=== PATIENT | female | born 1975 | race Caucasian/White ===

== ENCOUNTER 2017-10-22 14:07 | Day surgery (SDC) | payer OTHER ==
[2017-10-22 14:58] VITALS: BMI 38.4
[2017-10-22 15:35] LABS: Bilirubin Negative (Negative); Blood, Urine Negative (Negative); Clarity CLEAR (Clear); Glucose, Urine (Dipstick) Negative (Negative); Leukocyte Negative (Negative); Nitrite Negative (Negative); Protein, Urine (Dipstick) 100 mg/dL (Neg-Trace); Specific Gravity, Urine 1.019 (1.002-1.036); Urobilinogen 0.2 mg/dL (0.2-1.0); pH, Urine 5.5 (5.0-9.0)
[2017-10-22 15:38] LABS: #Basophils 0.1 thou/uL (0.0-0.2); #Eosinphils 0.1 thou/uL (0.0-0.7); #Lymphocytes 1.7 thou/uL (1.20-3.40); #Monocytes 0.6 thou/uL (0.11-0.59); %Basophils 0.8 % (0.0-1.0); %Eosinophils 0.7 % (0.0-10.0); %Lymphocytes 20.4 % (21.0-51.0); %Monocytes 6.7 % (0.0-10.0); %Neutrophils 71.4 % (42.0-75.0); Mean Corpuscular HGB CONC 33.4 g/dL (32.0-36.0); Mean Corpuscular Hemoglobin 30.4 pg (27.0-31.0); Mean Corpuscular Volume 90.9 fl (81.0-99.0); Mean Platelet Volume 9.4 fL (7.4-10.4); Platelet Count 175 thou/uL (130-400); RBC Distribution Width 11.6 % (11.5-14.5); Red Blood Cell (RBC) Count 3.61 mill/uL (4.20-5.40); White Blood Cell (WBC) Count 8.4 thou/uL (4.8-10.8)
[2017-10-22 15:38] LABS: Bacteria/HPF None Seen HPF (None Seen); Hyaline Casts/LPF 4-6 HYALINE CAST LPF (0-3 Hyaline); Pathc Cast-AUWi Flag 0.81 (0-2.49); Squamous Epithelial 0-3 HPF (0-3); WBC/HPF 0-3 HPF (0-3)
[2017-10-22 15:57] LABS: AST (SGOT) 13 U/L (5-34); Anion Gap 10 mmol/L (10-20); BUN (Urea Nitrogen) 13 mg/dL (7.0-18.7); Calc. Creatinine Clearance 172 mL/min (70-130); Calcium 9.1 mg/dL (7.8-10.44); Carbon Dioxide 23 mmol/L (22-29); Chloride 107 mmol/L (98-107); Estimated GFR-MDRD 87; Glucose 114 mg/dL (70-105); Potassium 3.9 mmol/L (3.5-5.1); Sodium 136 mmol/L (136-145)
--- NOTE | 2017-10-22 18:06 | PRG ---
DATE OF SERVICE: 10/22/2017 PRESENTING COMPLAINT: Elevated blood pressures at 37 weeks gestation. HISTORY OF PRESENT ILLNESS: Mr. Monae is a 42-year-old 2, para 0, AB 1 with an EDC of 11/06, who sees Dr. Merlene Ellison. She was sent over from the office with elevated blood pressures for matt luation. Of note, she has an induction of labor for gestational hypertension scheduled in 4 days. S he denies headache, blurred vision or scotoma. AUDIT OFFICER HISTORY: Elective termination x1. This is in vitro . The patient has had mildly el evated blood pressures over the last few weeks. Denies headache or scotoma. Blood type is A positiv e, antibody negative, Pap negative, rubella immune, VDRL nonreactive and group B strep not in the rec ord. PAST MEDICAL HISTORY: None. PAST SURGICAL HISTORY: None. ALLERGIES: Denies. MEDICATIONS: vitamins. SOCIAL HISTORY: Denies tobacco, alcohol or drug use. FAMILY HISTORY: Noncontributory. REVIEW OF SYSTEMS: Noncontributory. PHYSICAL EXAMINATION: GENERAL: White female, in no acute distress. VITAL SIGNS: Initial blood pressure 140/80, subsequent blood pressures have been 120s to 130s systol ic over 80s diastolic. She is afebrile with a pulse of 85 and respirations 18. HEENT: Within normal limits. LUNGS: Clear to auscultation bilaterally. HEART: Regular rhythm. ABDOMEN: Soft and nontender without rebound or guarding. FHTs are 140s, category 1 heart rate tracing. PELVIC: Cervical exam deferred. EXTREMITIES: Trace edema. LABORATORY STUDIES: Laboratory revealed normal hematocrit of 33% with a normal platelet count of 175 , AST is within normal limits at 13, creatinine is 0.74. Urine did reveal 100 on the urine consisten t with 1-2+. IMPRESSION: Mild proteinuria, normotensive at rest, at 37 weeks gestation with gestational hypertens ion. PLAN: Advised modified bed rest at home and proceed with planned induction in 4 days. The patient t o return if she develops headaches, scotoma or blurred vision, right upper quadrant pain.
== END 2017-10-22 16:45 | disposition home or self-care (01) ==
LOC: L&D/OP 14:07
PROVIDERS: ATTEND Obstetrics & Gynecology
DX: O13.3 Gestational [pregnancy-induced] hypertension without significant proteinuria, third trimester (principal); Z3A.37 37 weeks gestation of pregnancy; Z79.899 Other long term (current) drug therapy; Z88.5 Allergy status to narcotic agent; Z88.8 Allergy status to other drugs, medicaments and biological substances
CPT/HCPCS: 36415; 80048; 81001; 84450; 85025

== ENCOUNTER 2017-10-25 14:33 | Inpatient (IN) | payer OTHER ==
[2017-10-25] MEDS ORDERED: Acetaminophen 500 MG TAB PO PRN (16:00)
[2017-10-25] MEDS ORDERED: Zolpidem Tartrate 5 MG TAB PO PRN (16:00)
[2017-10-25] MEDS ORDERED: Ibuprofen 800 MG TAB PO PRN (16:00)
[2017-10-25] MEDS ORDERED: Promethazine HCl 25 MG/ML VIAL IM PRN (16:00)
[2017-10-25] MEDS ORDERED: Carboprost 250 MCG/ML AMP IM PRN (16:00)
[2017-10-25] MEDS ORDERED: LR / Pitocin 40 units/1000 ml 1,000 ML IV PRN (16:00)
[2017-10-25] MEDS ORDERED: Lidocaine 1% (PF) 30 ML VIAL SC PRN (16:00)
[2017-10-25] MEDS ORDERED: HYDROcodone/Acetaminophen 5/325 mg Tablet PO PRN (16:00)
[2017-10-25] MEDS ORDERED: Misoprostol 200 MCG TAB PR PRN (16:00)
[2017-10-25] MEDS ORDERED: LR 500 ML/Oxytocin 10 units 500 ML IV SCH (16:00)
[2017-10-25 20:58] VITALS: BMI 38.4
[2017-10-25] MEDS ORDERED: Penicillin G Potassium 5 MILL.UNITS in Sodium Chloride 0.9% 100 ML IVPB SCH (21:00)
[2017-10-25] MEDS: Lactated Ringer's 1,000 ML IV SCH (21:24)
[2017-10-25 21:53] LABS: Hemoglobin 10.7 g/dL (12.0-16.0); Mean Corpuscular HGB CONC 33.2 g/dL (32.0-36.0); Mean Corpuscular Hemoglobin 29.5 pg (27.0-31.0); Mean Corpuscular Volume 89.1 fl (81.0-99.0); Mean Platelet Volume 9.6 fL (7.4-10.4); Platelet Count 168 thou/uL (130-400); RBC Distribution Width 11.8 % (11.5-14.5); Red Blood Cell (RBC) Count 3.61 mill/uL (4.20-5.40); White Blood Cell (WBC) Count 9.2 thou/uL (4.8-10.8)
[2017-10-25] MEDS: Misoprostol 100 MCG TAB VAG SCH (21:55)
[2017-10-25 22:07] LABS: ALT (SGPT) Less than 7 U/L (8-55); AST (SGOT) 12 U/L (5-34); Albumin 3.1 g/dL (3.5-5.0); Alkaline Phosphatase 136 U/L (40-150); Anion Gap 15 mmol/L (10-20); BUN (Urea Nitrogen) 10 mg/dL (7.0-18.7); Bilirubin, Total 0.2 mg/dL (0.2-1.2); Calc. Creatinine Clearance 193 mL/min (70-130); Calcium 8.7 mg/dL (7.8-10.44); Carbon Dioxide 20 mmol/L (22-29); Chloride 107 mmol/L (98-107); Estimated GFR-MDRD Greater than 90; Globulin 2.3 g/dL (2.4-3.5); Glucose 94 mg/dL (70-105); Potassium 3.8 mmol/L (3.5-5.1); Protein, Total 5.4 g/dL (6.0-8.3); Sodium 138 mmol/L (136-145)
[2017-10-25 22:24] LABS: Syphilis Antibody Nonreactive (Nonreactive); Syphilis Antibody Index 0.04 S/CO (<1.00 Non-Reactive)
[2017-10-25 23:35] LABS: HBSAg Index 0.32 S/CO (0-0.99); Hep B Surf Ag Non-Reactive S/CO (NonReactive)
[2017-10-26] MEDS: Misoprostol 100 MCG TAB VAG SCH ×6 (01:05→16:53)
[2017-10-26] MEDS: Labetalol HCl 100 MG/20 ML VIAL SLOW IVP PRN ×2 (02:37→03:20)
[2017-10-26] MEDS ORDERED: Labetalol HCl 100 MG/20 ML VIAL ONE (02:39)
[2017-10-26] MEDS: Penicillin G 2.5 MILL.units 2.5 MILL.UNITS in Premix Bag 1 BAG IVPB SCH ×6 (03:27→18:26)
[2017-10-26] MEDS: Lactated Ringer's 1,000 ML IV SCH ×3 (03:28→10:07)
[2017-10-26] MEDS ORDERED: hydrALAZINE 20 MG/ML VIAL ONE (04:43)
[2017-10-26] MEDS ORDERED: hydrALAZINE 20 MG/ML VIAL SLOW IVP PRN (04:50)
[2017-10-26] MEDS ORDERED: Labetalol HCl 100 MG/20 ML VIAL SLOW IVP PRN (04:52)
[2017-10-26] MEDS ORDERED: Labetalol HCl 100 MG/20 ML VIAL SLOW IVP SCH (05:00)
[2017-10-26] MEDS ORDERED: Penicillin G Potassium 5 MILL.UNITS VIAL ONE (05:52)
[2017-10-26] MEDS ORDERED: Magnesium Sulfate 20 gm/500 ml 20 GM/500 ML BAG ONE (06:41)
[2017-10-26] MEDS ORDERED: Bupivacaine 0.5% 20 ML, Fentanyl 400 MCG in Sodium Chloride 0.9% 72 ML EPIDURAL SCH ×2 (07:15→09:00)
[2017-10-26] MEDS: Ondansetron PF 4 MG/2 ML Vial IVP PRN ×2 (07:40→16:21)
[2017-10-26] MEDS ORDERED: Calcium Gluc 4.6 MEQ/10 ML (100 MG/ML) SLOW IVP PRN (07:50)
[2017-10-26] MEDS ORDERED: Magnesium Sulfate 20 GM/WATER 500 ML BAG IVPB SCH (08:00)
[2017-10-26] MEDS ORDERED: Ondansetron PF 4 MG/2 ML Vial IVP PRN ×2 (08:46→20:03)
[2017-10-26] MEDS ORDERED: ePHEDrine/0.9% NaCl/PF SYRINGE 50 mg/10 ml SLOW IVP PRN (08:46)
[2017-10-26] MEDS ORDERED: Promethazine HCl 25 MG/ML VIAL IM PRN (08:46)
[2017-10-26] MEDS ORDERED: Naloxone HCl 0.4 mg/ml Vial IVP PRN ×2 (08:46)
[2017-10-26] MEDS ORDERED: Eucerin (Mineral Oil/Petrolatum,White) 30 gm Jar TOP PRN (08:46)
[2017-10-26] MEDS ORDERED: Acetaminophen 325 MG TAB PO PRN (08:46)
[2017-10-26] MEDS ORDERED: diphenhydrAMINE 50 MG/ML VIAL IVP PRN (08:46)
[2017-10-26] MEDS ORDERED: Lactated Ringer's 500 ML IV PRN (08:46)
[2017-10-26] MEDS ORDERED: Fentanyl 4mcg/Marcaine 0.1% Cassette 100 ML EPIDURAL SCH (09:00)
[2017-10-26] MEDS ORDERED: Communication Order-Pharmacy FS SCH (09:00)
--- NOTE | 2017-10-26 10:38 | PDOC.LDPN ---
Labor & Delivery Progress Note - Subjective Subjective: comfortable - Objective Vital signs reviewed and normal: yes General: NAD, resting Uterine fundus: non tender Dilation: 3 Effacement: 90% Station: -2 FHT: category 1 AROM: clear fluid Plan: continue plan of care
[2017-10-26] MEDS: Magnesium Sulfate 20 gm/500 ml 20 GM/500 ML BAG IVPB SCH (18:32)
[2017-10-26] MEDS ORDERED: Bisacodyl 10 MG SUPP PR PRN (20:03)
[2017-10-26] MEDS ORDERED: Lanolin Ointment 7 GM TUBE TOP PRN (20:03)
[2017-10-26] MEDS ORDERED: Milk Of Magnesia 30 ML UDCUP PO PRN (20:03)
[2017-10-26] MEDS ORDERED: Benzocaine/Menthol 20-0.5% 60 ML CAN TOP PRN (20:03)
[2017-10-26] MEDS ORDERED: diphenhydrAMINE 25 MG CAP PO PRN (20:03)
[2017-10-26] MEDS ORDERED: traMADol HCl 50 MG TAB PO PRN ×2 (20:03)
[2017-10-26] MEDS ORDERED: Preparation H Ointment 28 GM TUBE PR PRN (20:03)
[2017-10-26] MEDS ORDERED: LR / Pitocin 40 units/1000 ml 1,000 ML IV SCH (20:15)
[2017-10-26] MEDS: Docusate Calcium (SURFAK) 240 MG CAP PO SCH (21:30)
[2017-10-27] MEDS: Magnesium Sulfate 20 gm/500 ml 20 GM/500 ML BAG IVPB SCH ×2 (04:17→14:02)
[2017-10-27] MEDS ORDERED: Labetalol HCl 100 MG/20 ML VIAL SLOW IVP PRN (04:33)
[2017-10-27] MEDS: Lactated Ringer's 1,000 ML IV SCH ×2 (08:00→18:02)
--- NOTE | 2017-10-27 08:05 | PDOC.EVN ---
Event Note - Event Note Event Note: No headache or scotomata. Baby doing well. O: 123-=165/70-90. Required labetolol x 1 IV. ABDOMEN soft/non tender A: post day #1---severe PIH. Urine output good. Will add procardia 30 mg xl daily for htn maintenance.Continue IV Magnesium for seizure prophylaxis. Anticipate transfer to floor later today.
[2017-10-27] MEDS: Docusate Calcium (SURFAK) 240 MG CAP PO SCH (08:48)
[2017-10-27] MEDS: NIFEdipine XL 30 MG TAB PO SCH (08:48)
[2017-10-27] MEDS: Ferrous Sulfate 325 MG TAB PO SCH ×2 (08:48→17:59)
[2017-10-27] MEDS: Prenatal Vitamin 1 TAB PO SCH (08:48)
[2017-10-27] MEDS: Ibuprofen 800 MG TAB PO PRN ×2 (08:55→18:52)
[2017-10-27] MEDS ORDERED: Adacel (T-DAP) 0.5 ML VIAL IM ONE (09:00)
[2017-10-27] MEDS ORDERED: Bupivacaine 0.25% HCL 30 ML VIAL ONE (09:55)
--- NOTE | 2017-10-27 16:07 | PDOC.EVN ---
Event Note - Event Note Event Note: Patient feels well. Blood pressures remain normotensive<140/90. Excellent urine output. Plan to discontinue magnesium. Transfer to floor. Continue provardia 30 mg xl/ day withj prn IV labetololo coverage for any blood pressures>160/100..
[2017-10-27] MEDS: Misoprostol 100 MCG TAB VAG SCH ×2 (17:59→18:00)
[2017-10-27] MEDS: Penicillin G 2.5 MILL.units 2.5 MILL.UNITS in Premix Bag 1 BAG IVPB SCH ×3 (18:00→18:02)
[2017-10-28] MEDS: Ibuprofen 800 MG TAB PO PRN (06:05)
[2017-10-28] MEDS: Docusate Calcium (SURFAK) 240 MG CAP PO SCH ×2 (06:06→08:43)
--- NOTE | 2017-10-28 08:16 | PDOC.PP ---
Post Progress Note Post Day #: 2 Subjective: Feeling better. Pelvis is sore. Baby may need bili lights. PO intake tolerated: yes Flatus: yes Ambulation: yes Vital Signs (12 hours) Temp Pulse Resp BP 10/28/17 07:42 98.1 F 82 20 135/83 10/28/17 04:00 98.3 F 82 18 124/77 10/28/17 00:00 98.3 F 82 18 Weight Weight 238 lb - Physical Examination General: NAD Cardiovascular: no m/r/g, RRR Respiratory: clear to auscultation bilaterally, non-labored breathing Abdominal: + bowel sounds, lochia, no distention, appropriately TTP Result Diagrams: 10/25/17 21:24 10/25/17 21:24 Additional Labs: Post Labs Blood Type A POSITIVE 10/25/17 21:24 Hep Bs Antigen Non-Reactive S/CO (NonReactive) 10/25/17 21:24 - Assessment/Plan Post day 2--severe pre-eclampsia by blood pressure criteria. Blood pressure normotensive with procardia 30 mg/xl... Plan for discharge late today if mom and baby ready. If not, d/c in AM with f/u in 1 week and 6 weeks.
[2017-10-28] MEDS: Prenatal Vitamin 1 TAB PO SCH (08:43)
[2017-10-28] MEDS: NIFEdipine XL 30 MG TAB PO SCH (08:43)
[2017-10-28 11:36] VITALS: BP 132/72; TEMP 98.4
[2017-10-28] MEDS: Ferrous Sulfate 325 MG TAB PO SCH ×2 (12:09→18:11)
== END 2017-10-28 18:30 | disposition home or self-care (01) | DRG 775 ==
LOC: L&D 20:10 → 3SW 10-27 17:44 → EDSTATUS 11-06 14:32
PROVIDERS: ADMIT Obstetrics & Gynecology; ATTEND Obstetrics & Gynecology
PROC: 3E0P7VZ Introduction of Hormone into Female Reproductive, Via Natural or Artificial Opening (ICD-10-PCS; 2017-10-25)
PROC: 10D07Z3 Extraction of Products of Conception, Low Forceps, Via Natural or Artificial Opening (ICD-10-PCS; principal; 2017-10-26)
PROC: 0KQM0ZZ Repair Perineum Muscle, Open Approach (ICD-10-PCS; 2017-10-26)
DX: O14.14 Severe pre-eclampsia complicating childbirth (principal); K21.9 Gastro-esophageal reflux disease without esophagitis; O99.62 Diseases of the digestive system complicating childbirth; O99.824 Streptococcus B carrier state complicating childbirth; O70.1 Second degree perineal laceration during delivery; Z3A.38 38 weeks gestation of pregnancy; Z37.0 Single live birth; Z88.8 Allergy status to other drugs, medicaments and biological substances; Z88.5 Allergy status to narcotic agent; Z79.899 Other long term (current) drug therapy
CPT/HCPCS: 36415; 51702; 59025; 80048; 80053; 81001; 81003; 84450; 85025; 85027; 86780; 87340; 99284; J0360; J2001; J2405; J2540; J3010; J3475; J3490; J7050; J7120; S0020